=== PATIENT | male | born 1990 | race African-American/Black ===

== ENCOUNTER 2020-11-04 19:44 | Emergency (ER) | payer OTHER ==
[2020-11-04 20:00] VITALS: BP 127/75; PULSE 96; TEMP 98.3; BMI 50.1
[2020-11-04] MEDS ORDERED: CYCLOBENZAPRINE HCL 10 MG TABLET (FP) PO ONE (20:27)
[2020-11-04] MEDS ORDERED: IBUPROFEN 600 MG TABLET (FP) PO ONE ×2 (20:27→20:34)
[2020-11-04] MEDS ORDERED: CYCLOBENZAPRINE HCL 10 MG TABLET (FP) ONE (20:35)
== END 2020-11-04 21:12 | disposition home or self-care (01) ==
LOC: JERFT 19:44
DX: S39.012A Strain of muscle, fascia and tendon of lower back, initial encounter (principal)
CPT/HCPCS: 72100-TC-FY; 99283-25